=== PATIENT | male | born 1965 | race Caucasian/White ===

== ENCOUNTER 2020-04-29 08:58 | Emergency (ER) | payer OTHER, SELFPAY ==
[2020-04-29 09:01] VITALS: BP 159/82; PULSE 98; RESP 17; TEMP 37.1; O2SAT 99; BMI 29.5
--- NOTE | 2020-04-29 09:44 | CT_ITS ---
STUDY: CT ABDOMEN AND PELVIS WITHOUT CONTRAST REASON FOR EXAM: Male, 54 years old. LOW ABD PAIN AND CRAMPING, HX SPLENECTOMY, PARTIAL BOWEL RESECTION D/T IMMPALMENT INJURY RADIATION DOSAGE (If Supplied By Facility): CTDIvol = ( 16.05 ) mGy, DLP = ( 998.26 ) mGycm TECHNIQUE: Transaxial images were obtained from the dome of the diaphragm to the symphysis pubis without oral contrast, and without intravenous contrast. Sagittal and coronal images were reconstructed. Individualized dose optimization techniques were used for this CT. COMPARISON: None. FINDINGS: The visualized lung bases are unremarkable. The visualized portions of the heart are within normal limits. Normal liver. Normal gallbladder and extrahepatic biliary system. Spleen is surgically absent with small splenules in the left upper abdomen. Normal pancreas. Normal bilateral adrenal glands. Small subcentimeter renal cysts are considered benign. Benign, incidental finding; no specific imaging workup recommended according to current ACR guidelines. No hydronephrosis or solid renal masses. There is a small hiatal hernia. Surgical anastomosis of small bowel in the lower abdomen. Normal colon. The appendix is visualized and appears normal. In the anterior right lower abdomen, there is a focal area of rounded soft tissue reticulation (with central low density) measuring 1.8 x 2.0 cm on image 82 of series 2, likely representing a small focal area of omental infarction. No associated adjacent large or small bowel wall thickening, although does abut the sigmoid colon (coronal image 44). There is diffuse atherosclerotic calcification of the abdominal aorta, without a demonstrated aneurysm. Normal inferior vena cava. Normal retroperitoneum. Normal urinary bladder. There is a small umbilical hernia containing fat. No destructive bony process. CT/Abdomen/Pelvis W IV Cont ONLY IMPRESSION: 1. Small focal area of rounded stranding the anterior right lower abdomen compatible with benign omental infarction. No associated large or small bowel wall thickening. 2. Splenectomy with residual splenules in the left upper abdomen. Electronically Signed: Bud Goncalves MD ([place]) at 12:08 EST , Service support ,
--- NOTE | 2020-04-29 09:45 | ED.DCSUM_ITS ---
History of Present Illness Chief Complaint: Foreign Body Narrative: This patient is a 54-year-old male who presents with abdominal pain and a choking episode. He states that for years he always has to have something to drink when he eats otherwise he feels like things get caught in his throat. He has been having lower abdominal pain as well for the last few days. He describes this as cramping. It is across the lower abdomen but worst in the right lower quadrant. He initially thought this may just be related to his constipation and he tried a stool softener laxative shortly before presentation. However he felt like this became caught in his throat and when he is trying to drink water he felt like he was drowning as he was regurgitating this water. No fevers. No cough. Patient does have a history of a laparotomy for trauma in 2005 which resulted in a bowel resection and splenectomy. Past Medical History - Allergies and Home Meds Allergies/Adverse Reactions: Allergies codeine Adverse Reaction (Verified 04/29/20 09:00) Other Primary Care Physician: Giuseppe De Los Santos MD [Primary Care Provider] - Past Medical History: - - Hypertension Surgical History: - - Laparotomy with splenectomy and bowel resection Smoking Status: Never smoker - Family History Maternal Family History: Reports: No pertinent history Paternal Family History: Reports: No pertinent history Review of Systems All systems negative except as indicated General: Denies: Fever Eyes: Denies: Visual changes - bilaterally ENT: Denies: Bilateral ear pain Cardiovascular: Denies: Chest pain Respiratory: Denies: Dyspnea Gastrointestinal: Reports: Abdominal pain, Nausea, Vomiting. Denies: Diarrhea Musculoskeletal: Denies: Myalgias, Arthralgias Skin: Denies: Rash Neurological: Denies: Headache Psych: Reports: Anxiety Hematologic: Denies: Easy bruising Allergy: Denies: Uticaria Physical Exam Vital Signs/Narrative: Vital Signs Temp Pulse Resp BP Pulse Ox 04/29/20 09:01 98.7 F 98 17 159/82 H 99 Inital Vital Signs reviewed: Yes General: Well nourished, Well developed Head: Normocephalic Eyes: EOMI ENT: Moist mucous membranes Neck: Supple Cardiovascular: Regular rate, Regular rhythm Respiratory: No distress, CTA bilaterally Abdomen: Soft, - - Patient has diffuse lower abdominal pain which is most pronounced in the right lower quadrant he is nondistended he has normal bowel sounds he does not have guarding or rebound Skin: Normal color Neurological: Alert Psychological: - - Patient appears to be very anxious Diagnostic/Tx/Re-eval Impressions Abdomen/Pelvis CT 04/29/20 09:44 IMPRESSION: 1. Small focal area of rounded stranding the anterior right lower abdomen compatible with benign omental infarction. No associated large or small bowel wall thickening. 2. Splenectomy with residual splenules in the left upper abdomen. Electronically Signed: Bud Goncalves MD ([place]) at 12:08 EST , Service support , 04/29/20 09:44 Abdomen/Pelvis W IV Cont ONLY [CT] Stat Laboratory Results 04/29/20 04/29/20 10:03 10:03 WBC 8.4 RBC 5.15 Hgb 15.3 Hct 46.8 MCV 90.9 MCH 29.7 MCHC 32.7 RDW Std Deviation 45.0 H RDW Coeff of Katelyn 13.2 Plt Count 454 H MPV 9.7 Immature Gran % (Auto) 0.400 Neut % (Auto) 65.1 Lymph % (Auto) 20.5 [place] % (Auto) 10.8 H Eos % (Auto) 2.5 Baso % (Auto) 0.7 Absolute Neuts (auto) 5.5 Absolute Lymphs (auto) 1.72 Nucleated RBC % 0 Sodium 139 Potassium 4.0 Chloride 105 Carbon Dioxide 27.0 Anion Gap 7 BUN 18 Creatinine 1.43 H Estim Creat Clear Calc 60.43 Est GFR (MDRD) Af Amer 67 Est GFR (MDRD) Non-Af 55 L BUN/Creatinine Ratio 12.6 Glucose 113 H Calcium 8.6 Total Bilirubin 0.40 AST 14 L ALT 30 Alkaline Phosphatase 57 Total Protein 7.7 Albumin 3.3 Globulin 4.4 H Albumin/Globulin Ratio 0.8 L Lipase 245 - Medical Decision Making Patient was given IV fluids as well as morphine and Zofran. He is resting comfortably on reevaluation. He was able to drink water without any regurgitation he does not have evidence of esophageal impaction at this time. Laboratory studies were unremarkable except mild elevation of creatinine from couple of years ago. He was treated with IV fluids. CT shows a small area of likely omental infarction otherwise unremarkable. Patient was advised on supportive care. He understands to return for new or worsening symptoms. The patient was discharged. ED Disposition - Plan for ED Patient: Disposition: Home or Assisted Living Diagnosis: Omental infarction, Esophageal obstruction due to food impaction Instructions: ED Foreign Body Esophageal Rslv Referrals: Giuseppe De Los Santos MD [Primary Care Provider] - Xu Medrano MD [NON-STAFF] - Additional Instructions: Your CAT scan showed what was most likely a small area of fat tissue that had . This usually is not serious or life-threatening but can be painful. You should follow-up with your primary care doctor return for any new or worsening symptoms. Additionally based on your symptoms you likely have some narrowing in the esophagus which is the tube from the mouth to the stomach. You were given a phone number for a aeronautical design engineer which is a specialist in this to follow-up with. Take small bites and make sure you are chewing your food well.
[2020-04-29] MEDS: Ondansetron 4 MG/2 ML Vial IV (09:56)
[2020-04-29] MEDS: Morphine 4 MG/ML Syringe IV (09:57)
[2020-04-29] MEDS: 0.9% Normal Saline 1,000 ML 1000 ML IV (09:58)
[2020-04-29 10:15] LABS: Absolute Lymphocyte Count 1.72 X10^3/uL (0.83-4.51); Absolute Neutrophil Count 5.5 X10^3/uL (2.0-7.7); Basophil# 0.06 X10^3/uL; Basophil% 0.7 % (0-1); Eosinophil# 0.21 X10^3/uL; Eosinophils% 2.5 % (0-5); Hematocrit 46.8 % (40-54); Hemoglobin 15.3 g/dL (13.0-16.5); Lymphocyte # 1.72 X10^3/ul (4.0); Lymphocyte % 20.5 % (19-41); Mean Corp Hgb Conc 32.7 g/dL (32-36); Mean Corpuscular Hgb 29.7 pg (27.0-32.0); Mean Corpuscular Volume 90.9 fL (80-94); Mean Platelet Vol. 9.7 fl (6.2-12.0); Monocyte# 0.91 X10^3/uL; Monocyte% 10.8 % (0-10); NRBC Flagged by Analyzer 0 % (0-5); Neutrophil # 5.46 X10^3/uL (2.7-7.7); Neutrophil % 65.1 % (47-70); Platelet Count 454 K/mm3 (150-450); RBC Distribution Width CV 13.2 % (11.6-14.6); Red Blood Count 5.15 M/mm3 (4.6-6.2); White Blood Count 8.4 K/mm3 (4.4-11.0)
[2020-04-29 10:23] LABS: ALB/GLOB Ratio 0.8 RATIO (0.9-2.4); AST(SGOT) 14 U/L (15-37); Alanine Aminotransfer ALT/SGPT 30 U/L (16-61); Albumin, Serum 3.3 g/dL (3.2-5.0); Alkaline Phosphatase 57 U/L (45-117); Anion Gap 7 (5-15); BUN 18 mg/dL (7-18); BUN/Creat Ratio 12.6 RATIO (10-20); Calcium,Total 8.6 mg/dL (8.5-10.1); Chloride 105 mmol/L (98-107); Creatinine, Serum 1.43 mg/dL (0.70-1.30); EST Glomerular Filtration Rate 55 mL/min (>60); Est Glom Filt Rate - Afr Amer 67 mL/min (>60); Estimated Creatinine Clearance 60.43 ml/min; Globulin 4.4 g/dL (2.2-4.2); Glucose 113 mg/dL (74-106); Lipase 245 U/L (73-393); Protein, Total 7.7 g/dL (6.4-8.2); Sodium Level 139 mmol/L (136-145)
[2020-04-29 12:22] VITALS: BP 124/79; PULSE 81; RESP 16; O2SAT 97
--- NOTE | 2020-04-29 12:23 | ED.RN ---
THIS NURSE REVIEWED D/C INSTRUCTIONS WITH PT. PT VERBALIZED UNDERSTANDING OF INSTRUCTIONS. IV D/C. IV CATHETER INTACT. PT TOLERATED WELL. PT DENIES FURTHER NEEDS OR QUESTIONS AT THIS TIME. PT AMBULATES FROM ROOM ON OWN WITHOUT ASSISTANCE FROM STAFF
== END 2020-04-29 12:26 | disposition home or self-care (01) ==
PROVIDERS: Emergency Provider Emergency Medicine; PCP Family Medicine
DX: K55.069 Acute infarction of intestine, part and extent unspecified (principal); T18.128A Food in esophagus causing other injury, initial encounter; X58.XXXA Exposure to other specified factors, initial encounter
CPT/HCPCS: 74177; 80053; 83690; 85025; 96374; 96375; 99284; J7030; Q9967; A4216; J2405

== ENCOUNTER → 2020-05-03 08:18 | Outpatient (CLI) | payer OTHER, SELFPAY ==
[2020-04-29 09:01] VITALS: BMI 29.5
--- NOTE | 2020-05-03 08:21 | RAD_ITS ---
EXAMINATION: UPPER GI SERIES INDICATION: Male, 54 years dysphagia proximal esophagus. FLUOROSCOPY TIME (if supplied): (0:44) minutes/seconds TECHNIQUE: Radiographic and fluoroscopic images of the distal esophagus, stomach, and proximal small intestine were obtained following the oral ingestion of barium. COMPARISON: None. FINDINGS: There is no evidence for organomegaly, abnormal calcifications, or abnormal bowel gas pattern. The psoas margins and flank stripes are normal. The visualized osseous structures are normal. The mucosa of the esophagus, stomach and duodenum is normal in appearance without evidence for stricture, ulceration, mass or diverticulum. There is evidence of a small sliding hernia with gastroesophageal reflux. The patient ingested a 12 mm tablet of barium without any difficulty. RAD/Upper GI w/BA Swallow IMPRESSION: Small sliding hiatal hernia with gastroesophageal reflux. Electronically Signed: Juan Roth, at 13:20 EST , Service support ,
== END ==
PROVIDERS: PCP Family Medicine; Referring Provider Internal Medicine Gastroenterology; Visit Provider Internal Medicine Gastroenterology
DX: R13.14 Dysphagia, pharyngoesophageal phase (principal)
CPT/HCPCS: 74246

== ENCOUNTER 2020-05-07 18:21 | Emergency (ER) | payer OTHER, SELFPAY ==
[2020-05-07 18:24] VITALS: BP 142/72; PULSE 112; RESP 25; TEMP 36.6; O2SAT 100; BMI 30.4
[2020-05-07] MEDS: Glucagon 1 MG/ML Syringe IV (19:07)
--- NOTE | 2020-05-07 19:22 | ED.VISSUMM ---
- ER Visit Summary Date of Service: 05/07/20 Chief Complaint: Esophageal foreign body History of Present Illness: The patient is a 54 M who has an esophageal foreign body. He was eating chicken today when he feels like it stuck in his throat. He was here Thursday for similar symptoms and it resolved on its own. He has no history of any swallowing surgeries or dilations. He states that he was always needed to drink after eating food. He is scheduled to follow-up with Dr. Medrano for an endoscopy. Physical Examination: Vital signs reviewed. HEENT exam unremarkable. There is no stridor. Heart is regular rate and rhythm without murmurs. Lungs are clear to auscultation. Abdomen is soft and nontender. Extremities reveal no edema. Skin exam normal. Neurologic exam normal. Test Results: None performed Emergency Department Course and Treatment: Patient was given 1 mg of IV glucagon. The foreign body resolved on its own. He is now able to drink [employer] without any difficulties. He states that Dr. Medrano's office called him today but he was unable to answer the phone call. I recommended that he call the office back tomorrow to schedule an endoscopy. Treatment Plan: [] Disposition: Discharge Impression: Esophageal foreign body, resolved This note was generated with [employer] dictation software. It may contain incorrect words, spelling, and punctuation that were not noted in review of the chart prior to signing ED Disposition - Plan for ED Patient: Disposition: Home or Assisted Living Instructions: ED Foreign Body Esophageal Rslv Referrals: Giuseppe De Los Santos MD [Primary Care Provider] -
[2020-05-07 19:28] VITALS: BP 124/79; PULSE 81; RESP 18; O2SAT 99
--- NOTE | 2020-05-07 19:29 | ED.RN ---
THIS NURSE REVIEWED D/C INSTRUCTIONS WITH PT. PT VERBALIZED UNDERSTANDING OF INSTRUCTIONS. IV D/C. IV CATHETER INTACT. PT TOLERATED WELL. PT DENIES FURTHER NEEDS OR QUESTIONS AT THIS TIME
== END 2020-05-07 19:29 | disposition home or self-care (01) ==
PROVIDERS: Emergency Provider Emergency Medicine; PCP Family Medicine
DX: T18.108A Unspecified foreign body in esophagus causing other injury, initial encounter (principal); X58.XXXA Exposure to other specified factors, initial encounter
CPT/HCPCS: 96374; 99284; A4216; J1610

== ENCOUNTER → 2020-05-10 12:51 | Outpatient (CLI) | payer OTHER, SELFPAY ==
[2020-04-29 09:01] VITALS: BMI 29.5
[2020-05-07 18:24] VITALS: BMI 30.4
--- NOTE | 2020-05-10 13:46 | ST.MBS ---
Modified Barium Swallow - Patient Information Study Date: 05/10/20 Study Time: 13:00 Direct Billable Minutes: 116 Total Minutes procedure & reportin Diagnosis: Dysphagia; Choking Referring Physician: Dr. Medrano Reason for Referral: Further assessment of swallow function necessary d/t recent choking episodes which necessitated presentation to the ED on 04/29/2020 and 05/07/2020. 04/29/2020 d/t pills stuck in throat and 05/07/2020 d/t esophageal retention of chicken. Pt reported that he was still able to breathe but was uncomfortable and when attempting to use a liquid wash, he felt as if he was drowning. Outpatient Upper GI w/ Barium Swallow completed 05/03/2020 IMPRESSION: Small sliding hiatal hernia with gastroesophageal reflux. Medical History: The patient denies any past medical history pertinent to need for MBSS. Mental Status: WNL Respiratory Status: Oxygenating on Room Air - Penetration-Aspiration Scale Penetration-Aspiration Scale: OBJECTIVE ASSESSMENT OF SWALLOW FUNCTION (QUANTITATIVE ? PER TRIAL): PENETRATION / ASPIRATION SCALE (MATA): 1 = does not enter airway 2 = enters airway/above vocal folds/ejected 3 = enters airway/above vocal folds/not ejected 4 = enters airway/contacts vocal folds/ejected 5 = enters airway/contacts vocal folds/not ejected 6 = enters airway/below vocal folds/ejected 7 = enters airway/below vocal folds/not ejected despite effort 8 = enters airway/below vocal folds/no effort - Penetration-Aspiration Scale Score Thin Liquid via teaspoon Result: 1= does not enter airway Thin Liquid via teaspoon Trial 2 Result: 1= does not enter airway Thin Liquid via small single sip from cup Result: 1= does not enter airway Thin Liquid via sequential sips from cup Result: 1= does not enter airway Pudding via teaspoon Result: 1= does not enter airway Pudding via teaspoon Trial 2 Result: 1= does not enter airway Cookie Result: 1= does not enter airway Barium Tablet Result: 1= does not enter airway Barium Tablet Trial 2 Result: 1= does not enter airway - Oral Phase Labial Seal: No Labial Escape Tongue Control During Bolus Hold: Cohesive bolus between tongue to palatal seal Bolus Preparation/Mastication: Timely and efficient chewing and mashing Bolus Transport/Lingual Motion: Brisk tongue motion Oral Residue: Complete oral clearance - Pharyngeal Phase Initiation of Pharyngeal Swallow: Bolus head at posterior angle of ramus at first hyoid excursion Soft Palate Elevation: No bolus between soft palate and pharyngeal wall Laryngeal Elevation: Comp. Superior move thyroid cart w/comp. apprx arytenoid cart-epig pet Anterior Hyoid Excursion: Complete anterior movement Epiglottic Movement: Partial inversion Laryngeal Vestibule Closure at Height of Swallow: Complete; no air/contrast in laryngeal vestibule Pharyngeal Stripping Wave: Present - complete Pharyngoesophageal Segment Opening: Parital distension and partial duration; parital obstruction of flow Tongue Base Retraction: No contrast between tongue base and posterior pharyngeal wall Pharyngeal Residue: Trace residue within or on pharyngeal structures - Esophageal Phase Esophageal Clearance: Esophageal retention - Diagnosis/Impression Diagnosis: Mild Pharyngoesophageal dysphagia Impression: The patient's oropharyngeal swallow function was found to be grossly within normal limits. Of note, the tip of the epoiglottis was noted to not fully invert, resting against the posterior pharyngeal wall at the point of maximal inversion w/ resultant trace contrast retention on the vallecular surface of the epiglottic post deglutiton. This finding appears to be incidental and likely unrelated to current dysphagia symptoms. Reduced distention and duration of pharyngoesophageal segment opening was evident. Cricopharyngeal hypertrophy noted at the C-5 level. Thin liquid contrast retention evident w/in the pyriforms post deglutition. No retrograde bolus flow evident below the PES w/ trace contrast lining the esophagus. One instance of pharyngoesophageal retention was reported by the patient during the study w/ the shortbread cookie bolus, requiring the patient to clear his throat/expectorate 2x and re-swallow to clear the bolus. Unfortunately, the offending piece of cookie was not coated in barium to the extent necessary to be evident under fluoroscopy. Highly suspect that pharyngoesophageal dysphagia is secondary to PES/cricopharyngeal dysfunction w/ further GI assessment/management recommended. - Recommendations Diet: Regular Textures, Thin Liquids Comment: Recommend soft/moist foods, chop/cut into small pieces, small bites, chew thoroughly, slow rate of intake, alternate bites/sips, seated upright for PO intake, remain upright for 30-60 minutes after intake Recommend Repeat Modified Barium Swallow: No Comment: No further skilled ST intervention for management of dysphagia is warranted at this time. Findings were reviewed w/ the patient immediately after study completion. The patient demonstrated sufficient understanding of the recommended compensatory strategies to implement pending follow up w/ GI. Need for Skilled Speech Therapy Services: No Recommended Referrals: GI Consult - Highly suspect that pharyngoesophageal dysphagia is secondary to PES/cricopharyngeal dysfunction w/ further GI assessment/management recommended. Education Completed: 1. Described result of evaluation., 2. Pt understands evaluation & agrees with goals and treatment plan., 5. Patient demonstrates recommended strategies. - Image Count: 1,[phone] - Contact Information [facility] Speech Therapy:: [place] M.A[facility]-ATTENDANT CHILD ACTIVITY [facility] Speech-Language Pathiologist [email or web address] [phone]
== END ==
PROVIDERS: PCP Family Medicine; Referring Provider Internal Medicine Gastroenterology; Visit Provider Internal Medicine Gastroenterology
DX: R13.10 Dysphagia, unspecified (principal)
CPT/HCPCS: 74230

== ENCOUNTER → 2020-05-11 17:39 | Outpatient (CLI) | payer OTHER, SELFPAY ==
[2020-05-07 18:24] VITALS: BMI 30.4
== END ==
PROVIDERS: PCP Family Medicine; Referring Provider Internal Medicine Gastroenterology; Visit Provider Internal Medicine Gastroenterology
DX: Z11.59 Encounter for screening for other viral diseases (principal)
CPT/HCPCS: 87635; C9803; U0003

== ENCOUNTER 2021-11-29 22:05 | Emergency (ER) | payer OTHER, SELFPAY ==
[2021-11-29 22:05] VITALS: BP 125/85; PULSE 80; RESP 15; TEMP 36.6; O2SAT 97; BMI 29.5
--- NOTE | 2021-11-29 22:17 | EKG12_ITS ---
Test Reason : DYSRHYTHMIA Blood Pressure : / mmHG Vent. Rate : 078 BPM Atrial Rate : 078 BPM P-R Int : 144 ms QRS Dur : 090 ms QT Int : 392 ms P-R-T Axes : 050 053 042 degrees QTc Int : 446 ms Normal sinus rhythm Normal ECG Confirmed by BALDO CARRASQUILLO, MORE ([id number]), development editor MAGGIE PINEDO ([id number]) on 12/02/2021 1:02:49 PM Referred By: ZACHARY Confirmed By:MORE BLAND MD
--- NOTE | 2021-11-29 22:20 | EDS_ITS ---
HPI History of Present Illness Chief Complaint: Shortness of Breath Informant: patient Onset/Context/Timing Onset: Today Context: gradual (And progressively worsening throughout the day) Quality: Positive for - (Dyspnea due to painful respirations) Current Severity: Severe (Pain; dyspnea only mild) Maximum Severity: Severe Worsened by: Coughing and - (Deep breath) Relieved by: Nothing Associated Symptoms cough Chest Pain: Positive for None Narrative Narrative: 56-year-old male, he just returned from [place] where he was traveling for work, and today started having pleuritic right upper back pain. The pain has become severe. Feels like it is on the inside no worse with movement only breathing and coughing. His cough is mild. He has no fevers, chills, myalgias, headaches, neurologic symptoms. No chest discomfort. She states it felt like this the last time he had pneumonia which ended up being bilateral and he was admitted to the hospital here. No history of DVT or PE. No recent leg pain or swelling. No anticoagulants for any reason. [facility] Medical History (Updated 11/30/21 @ 05:[address] Ken Mack MD) HTN (hypertension) Mild renal insufficiency Home Medications amlodipine-benazepril [Lotrel] 1 capsule PO DAILY 07/07/15 [History Last Taken 07/06/15 1 cap] pantoprazole 40 mg PO DAILY 11/29/21 [History Last Taken Unknown] apixaban [Eliquis DVT-PE Treat 30D Start] 5 mg PO BID #74 tab 11/30/21 [Rx Last Taken Unknown] hydrocodone-acetaminophen 1 tab PO Q6H PRN PRN 4 Days #16 tablet 11/30/21 [Rx Last Taken Unknown] Allergy/AdvReac Type Severity Reaction Status Date / Time codeine AdvReac Other Verified 11/29/21 22:08 Social History (Updated 11/30/21 @ 02:[address] Irene Izquierdo MD) household members: spouse Smoking Status: Never smoker alcohol intake: never substance use type: does not use ROS ROS ED Constitutional Constitutional ED: Denies chills or fever(s) Eyes Eyes: Denies change in vision or diplopia ENT ENT ED: Denies rhinorrhea or sore throat Cardiovascular Cardiovascular: Denies chest pain, dyspnea on exertion, leg edema, ligh theadedness or palpitations Respiratory/Chest Respiratory/Chest: Reports as per HPI, cough and dyspnea Gastrointestinal Gastrointestinal: Denies abdominal pain, diarrhea, nausea or vomiting Genitourinary Genitourinary ED: Denies dysuria or hematuria Musculoskeletal Musculoskeletal: Reports as per HPI and back pain; Denies neck pain Integumentary Denies abscess or rash Neurologic Neurologic: Denies headache(s), paresthesias or weakness Psychiatric Psychiatric: Denies anxiety or suicidal thoughts EXAM Physical Exam Const Vital Signs: 11/29/21 22:05 11/30/21 03:47 11/30/21 05:38 Temperature 97.8 F Temperature Source Temporal Pulse Rate 80 73 75 Respiratory Rate 15 19 H 18 Blood Pressure 125/85 H 132/86 H 113/76 Blood Pressure Mean 98 101 Pulse Ox 97 93 93 Oxygen Delivery Method Room Air Room Air Positive well nourished and well developed General Appearance ED: well developed and NAD HEENT Reports moist mucous membranes normocephalic and atraumatic Eyes PERRL and EOMs intact bilaterally Neck full ROM and supple Chest Wall inspection of chest normal and palpation of chest normal Chest: Negative for tenderness Resp normal respiratory effort and clear to auscultation bilaterally Resp Narrative: Due to right upper back pain, patient splinting with deep inspiration Cardio regular rate, regular rhythm and no murmurs Rate: Negative for tachycardic GI non-tender and non-distended Auscultation: normoactive bowel sounds Palpation: soft Back/Spine no CVA tenderness Back/Spine Narrative: Upper back where patient is having pain is nontender and normal to inspection without rash General Back: other FROM Extremity normal to inspection General Extremety ED: Negative for edema, pulses abnormal or tenderness General Extremity: Negative for edema or pulses abnormal Neuro oriented x3, CN's II-XII intact bilaterally and no sensory deficits noted Sensorium / Orientation: awake and alert Motor Exam: strength 5/5 throughout Skin no rashes or lesions noted and no wounds MDM MDM MDM Narrative Medical decision making narrative: Work-up included a D-dimer, labs, EKG, chest x-ray. D-dimer is elevated, however so is his creatinine to the point where his EGFR is depressed down to 29 and should be improved before scanning him with contrast. Patient really did not want to be admitted, and he presents on Thursday evening, nuclear medicine not available over the weekend. Therefore we hydrated him aggressively and repeated his chemistries until his GFR is up a little and then scanned his chest. It is positive for pulmonary emboli as well as a likely small pulmonary infarct in the right lung, which is probably responsible for his pleuritic symptoms. He was initially given Toradol while we were waiting for work-up, which really helped his pain although it returned later. He remained hemodynamically stable, without hypoxemia, and was able to walk around the emergency department to and from the restroom without any exertional dyspnea, palpitations, lightheadedness, or syncope. The chest scan also showed some signs of mild right heart strain. I discussed this in the infarct along with his context with Dr. Sánchez on for pulmonary, who advises that in this scenario it would be safe for him to be discharged as an outpatient avoid exertion and follow-up while putting him on Eliquis which we did. Also prescribed him some [place] for pain, and advised close outpatient follow-up. Patient is comfortable with that plan. Lab Data Attestation: I reviewed the patient's lab results. Labs: Laboratory Results - last 24 hr 11/29/21 11/29/21 11/29/21 22:18 22:18 22:18 WBC 12.7 H RBC 5.04 Hgb 15.1 Hct 45.0 MCV 89.3 MCH 30.0 MCHC 33.6 RDW Std Deviation 43.7 RDW Coeff of Katelyn 13.4 Plt Count 458 H MPV 9.8 Immature Gran % (Auto) 0.300 Neut % (Auto) 54.3 Lymph % (Auto) 27.9 Wilcox % (Auto) 13.6 H Eos % (Auto) 3.3 Baso % (Auto) 0.6 Absolute Neuts (auto) 6.9 Absolute Lymphs (auto) 3.54 Nucleated RBC % 0 Differential Comment SEE COMMENT Diff Path Review May foll Platelet Estimate SLT INC RBC Morphology N CHROM Anisocytosis RARE Macrocytosis RARE D-Dimer Quant (PE/DVT) 1.08 H* Sodium 135 L Potassium 4.1 Chloride 105 Carbon Dioxide 22.0 Anion Gap 8 BUN 23 H Creatinine 2.52 H Estim Creat Clear Calc 33.51 Est GFR (MDRD) Af Amer 34 L Est GFR (MDRD) Non-Af 29 L BUN/Creatinine Ratio 9.1 L Glucose 115 H Calcium 8.7 Troponin I High Sens < 3 L 11/30/21 11/30/21 00:35 02:07 WBC RBC Hgb Hct MCV MCH MCHC RDW Std Deviation RDW Coeff of Katelyn Plt Count MPV Immature Gran % (Auto) Neut % (Auto) Lymph % (Auto) Wilcox % (Auto) Eos % (Auto) Baso % (Auto) Absolute Neuts (auto) Absolute Lymphs (auto) Nucleated RBC % Differential Comment Diff Path Review Platelet Estimate RBC Morphology Anisocytosis Macrocytosis D-Dimer Quant (PE/DVT) Sodium 140 Potassium 3.9 Chloride 111 H Carbon Dioxide 22.0 Anion Gap 7 BUN 24 H Creatinine 1.95 H Estim Creat Clear Calc 43.31 Est GFR (MDRD) Af Amer 46 L Est GFR (MDRD) Non-Af 38 L BUN/Creatinine Ratio 12.3 Glucose 111 H Calcium 8.0 L Troponin I High Sens < 3 L Radiography Diagnostic Testing: Clinical Impression(s) from Imaging Studies Chest X-Ray 11/29/21 22:38 IMPRESSION: No radiographic evidence of acute cardiopulmonary disease. Electronically Signed: Misha Vee MD at 23:13 EDT , Chest CTA 11/30/21 03:28 IMPRESSION: Acute pulmonary emboli within the right lower lobe artery extending into multiple segmental and subsegmental branches. Additional emboli within subsegmental right middle and left lower lobe branches. Findings concerning for peripheral pulmonary infarct in the superior segment right lower lobe. Bilateral basilar atelectasis with additional infarct not excluded. Flattening of the interventricular septum and slightly increased RV LV ratio concerning for mild right heart strain. Left thyroid nodules up to 2.3 cm. Ultrasound follow-up recommended when clinically able Electronically Signed: Wyatt Scott MD at 5:02 EDT , ADDENDUM: 11/30/21 0511 IMPRESSION: Acute pulmonary emboli within the right lower lobe artery extending into multiple segmental and subsegmental branches. Additional emboli within subsegmental right middle and left lower lobe branches. Findings concerning for peripheral pulmonary infarct in the superior segment right lower lobe. Bilateral basilar atelectasis with additional infarct not excluded. Flattening of the interventricular septum and slightly increased RV LV ratio concerning for mild right heart strain. Left thyroid nodules up to 2.3 cm. Ultrasound follow-up recommended when clinically able N.B. : The above Results were Read Back by Wyatt Scott MD to Dr. Frederick MD, and understanding confirmed on 11/30/2021 05:05:00 (ET). Electronically Signed: Wyatt Scott MD at 5:02 EDT , EKG Initial EKG: Attestation: I personally reviewed and interpreted this EKG as follows: Interpretation: Sinus Rhythm and No Acute Injury Pattern Comments: normal EKG Discharge Plan Triage Chief Complaint: Shortness of Breath ED Provider: Ken Mack Dx/Rx/DC Orders Clinical Impression: Pulmonary embolism and infarction, Upper back pain on right side, Painful respiration, ERIBERTO (acute kidney injury) Instructions: Embolism Pulmonary Dc Prescriptions: New Eliquis DVT-PE Treat 30D Start 5 mg (74 tabs) tablets,dose pack 5 mg PO BID Qty: 74 RF: 0 hydrocodone-acetaminophen [hydrocodone-acetaminophen] 1 TABLET tablet 1 tab PO Q6H PRN PRN (Reason: Pain) 4 Days Qty: 16 RF: 0 No Action amlodipine-benazepril [Lotrel] 1 CAPSULE capsule 1 capsule PO DAILY RF: 0 pantoprazole 40 mg tablet,delayed release (DR/EC) 40 mg PO DAILY RF: 0 Primary Care Provider: Giuseppe De Los Santos Referrals: Braulio Sánchez DO [STAFF PHYSICIAN] - (Next week, call Thursday for appoint ment time/date) Giuseppe De Los Santos MD [Primary Care Provider] - 3-5 Days (for reevaluation of your kidney function; stay well hydrated at least up until then) Disposition Disposition: Home, Self Care Discharge Date/Time: 11/30/21 06:04
[2021-11-29] MEDS: Ketorolac 15 MG/ML Vial IV (22:31)
[2021-11-29 22:35] LABS: Absolute Lymphocyte Count 3.54 X10^3/uL (0.83-4.51); Absolute Neutrophil Count 6.9 X10^3/uL (2.0-7.7); Basophil# 0.07 X10^3/uL; Basophil% 0.6 % (0-1); Eosinophil# 0.42 X10^3/uL; Eosinophils% 3.3 % (0-5); Hemoglobin 15.1 g/dL (13.0-16.5); Lymphocyte # 3.54 X10^3/ul (0.83-4.51); Lymphocyte % 27.9 % (19-41); Mean Corp Hgb Conc 33.6 g/dL (32-36); Mean Corpuscular Volume 89.3 fL (80-94); Mean Platelet Vol. 9.8 fl (6.2-12.0); Monocyte# 1.73 X10^3/uL; Monocyte% 13.6 % (0-10); NRBC Flagged by Analyzer 0 % (0-5); Neutrophil # 6.91 X10^3/uL (2.7-7.7); Neutrophil % 54.3 % (47-70); POSITIVE DIFFERENTIAL YES; Platelet Count 458 K/mm3 (150-450); RBC Distribution Width CV 13.4 % (11.6-14.6); RBC Distribution Width SD 43.7 fl (35.1-43.9); Red Blood Count 5.04 M/mm3 (4.6-6.2); White Blood Count 12.7 K/mm3 (4.4-11.0)
--- NOTE | 2021-11-29 22:38 | RAD_ITS ---
INDICATION: cough, sob, pleuritic R back pain EXAMINATION/TECHNIQUE: X-RAY - portable upright AP chest x-ray. COMPARISON: 07/11/2015 FINDINGS: LINES/DEVICES: None. LUNGS: No consolidation, edema or effusion. No pneumothorax. MEDIASTINUM AND CARDIOVASCULAR STRUCTURES: Cardiac silhouette not enlarged. Central airways and mediastinal contour are unremarkable. BONES AND SOFT TISSUES: Unremarkable. RAD/Chest 1 View (Portable) IMPRESSION: No radiographic evidence of acute cardiopulmonary disease. Electronically Signed: Misha Vee MD at 23:13 EDT ,
[2021-11-29 22:40] LABS: Differential Indicated SCAN CRITERIA MET
[2021-11-29 22:53] LABS: Anion Gap 8 (5-15); BUN 23 mg/dL (7-18); BUN/Creat Ratio 9.1 RATIO (10-20); Calcium,Total 8.7 mg/dL (8.5-10.1); Chloride 105 mmol/L (98-107); Creatinine, Serum 2.52 mg/dL (0.70-1.30); EST Glomerular Filtration Rate 29 mL/min (>60); Est Glom Filt Rate - Afr Amer 34 mL/min (>60); Estimated Creatinine Clearance 33.51 ml/min; Glucose 115 mg/dL (74-106); Potassium 4.1 mmol/L (3.5-5.1); Sodium Level 135 mmol/L (136-145); Troponin-I HS (w/2H Reflex) < 3 pg/mL (3.0-78.0)
[2021-11-29 23:00] LABS: D-Dimer Quantitative (DVT/PE) 1.08 FEU/ug/m (0.27-0.49)
[2021-11-29 23:11] LABS: Anisocytosis RARE; Platelet Estimate SLT INC (ADEQ); Red Cell Morphology N CHROM NORMAL (NORM C&C)
[2021-11-29 23:12] LABS: Macrocytosis RARE
[2021-11-29] MEDS: 0.9% Normal Saline 1,000 ML 999 ML IV (23:31)
[2021-11-30 00:26] LABS: Reflex Troponin-HS? (from REC) Y
[2021-11-30] MEDS: 0.9% Normal Saline 1,000 ML 999 ML IV (00:32)
[2021-11-30 01:14] LABS: Troponin-I HS < 3 pg/mL (3.0-78.0)
[2021-11-30 03:06] LABS: Anion Gap 7 (5-15); BUN 24 mg/dL (7-18); BUN/Creat Ratio 12.3 RATIO (10-20); Chloride 111 mmol/L (98-107); Creatinine, Serum 1.95 mg/dL (0.70-1.30); EST Glomerular Filtration Rate 38 mL/min (>60); Est Glom Filt Rate - Afr Amer 46 mL/min (>60); Estimated Creatinine Clearance 43.31 ml/min; Glucose 111 mg/dL (74-106); Potassium 3.9 mmol/L (3.5-5.1); Sodium Level 140 mmol/L (136-145)
--- NOTE | 2021-11-30 03:28 | CT_ITS ---
We are attempting to reach an attending provider to discuss findings. An addendum with communication details will be sent when the communication is complete. STUDY: CTA CHEST REASON FOR EXAM: Male, 56 years old. right pleuritic lung pain, elevated d-dimer RADIATION DOSAGE (If Supplied By Facility): CTDIvol = ( 15.98 ) mGy, DLP = ( 500.63 ) mGycm TECHNIQUE: The examination was performed with the intravenous administration of IV 100mL Isovue-370. Post-processing of the angiographic images was performed, with multiplanar reformation and 3D reconstruction. Individualized dose optimization techniques were used for this CT. COMPARISON: July 07, 2015 . FINDINGS: Left thyroid 2.3 cm and smaller nodule. Acute pulmonary emboli right lower lobe artery extending into superior segment, posterior and lateral basilar segments with additional posterior subsegmental emboli. Subsegmental right middle lobe emboli. Subsegmental emboli posterior left lower lobe. Ascending aorta to 4.2 cm with normal distal tapering. Mild aortic atherosclerosis. No dissection. No gross cardiomegaly. Flattening of the interventricular septum with borderline abnormal RV LV ratio slightly greater than 1. Mild coronary atherosclerosis. Bilateral hilar subcentimeter lymph nodes are present. No bulky mediastinal adenopathy. No endobronchial lesion. Mild bilateral diffuse peribronchial thickening. Posterior superior segment right lower lobe groundglass attenuation. Bilateral basilar dependent groundglass attenuation. Trace right effusion. No pneumothorax. Normal osseous structures. Splenosis. Left renal upper pole 1.5 cm cyst, no imaging follow-up required. CT/CTA Chest W/WO Contrast IMPRESSION: Acute pulmonary emboli within the right lower lobe artery extending into multiple segmental and subsegmental branches. Additional emboli within subsegmental right middle and left lower lobe branches. Findings concerning for peripheral pulmonary infarct in the superior segment right lower lobe. Bilateral basilar atelectasis with additional infarct not excluded. Flattening of the interventricular septum and slightly increased RV LV ratio concerning for mild right heart strain. Left thyroid nodules up to 2.3 cm. Ultrasound follow-up recommended when clinically able Electronically Signed: Wyatt Scott MD at 5:02 EDT ,
[2021-11-30 03:47] VITALS: BP 132/86; PULSE 73; RESP 19; O2SAT 93
[2021-11-30] MEDS: HYDROcodone Bitartrate/Apap 5/325 Tablet PO (05:32)
[2021-11-30 05:38] VITALS: BP 113/76; PULSE 75; RESP 18; O2SAT 93
[2021-12-02 13:34] LABS: Pathologist Review Reviewed
== END 2021-11-30 06:04 | disposition home or self-care (01) ==
PROVIDERS: Emergency Provider Emergency Medicine; PCP Family Medicine; Visit Provider Emergency Medicine
DX: I26.99 Other pulmonary embolism without acute cor pulmonale (principal); N17.9 Acute kidney failure, unspecified; M54.9 Dorsalgia, unspecified; I10 Essential (primary) hypertension; Z79.899 Other long term (current) drug therapy
CPT/HCPCS: 71045; 71275; 80048; 84484; 85025; 85379; 87428; 93005; 96374; 99284; J7030; Q9967; A4216